=== PATIENT | female | born 1970 | race Caucasian/White ===

== ENCOUNTER 2024-03-01 08:34 | Day surgery (SDC) | payer OTHER ==
[~2024-03-01] VITALS: Ht 167.6 cm; Wt 85.7 kg
[2024-03-01 09:07] LABS: HCG,QUAL RESULT NEGATIVE (NEGATIVE)
[2024-03-01] MEDS ORDERED: MIDAZOLAM HCL 5 MG/5 ML VIAL ONE (09:17)
[2024-03-01] MEDS ORDERED: fentaNYL CITRATE/PF 100 MCG/2 ML AMP ONE (09:17)
[2024-03-01 12:23] VITALS: BP_SYST 115; PULSE 69; RESP 18; TEMP 97.1; O2SAT 96
== END 2024-03-01 10:50 | disposition home or self-care (01) ==
LOC: SDS 08:34 → SMU 08:38 → SDS 10:50
PROVIDERS: ATTEND Internal Medicine
DX: K59.09 Other constipation (principal); D12.5 Benign neoplasm of sigmoid colon; K57.30 Diverticulosis of large intestine without perforation or abscess without bleeding; K64.8 Other hemorrhoids; J45.909 Unspecified asthma, uncomplicated; Z98.891 History of uterine scar from previous surgery; Z87.891 Personal history of nicotine dependence
CPT/HCPCS: 45385; 84703; 88305; 99153; 99152; G0378; J2250; J3010